=== PATIENT | female | born 1945 | race Caucasian/White ===

== ENCOUNTER 2019-12-20 12:46 | Outpatient (CLI) | payer MEDICARE, OTHER ==
[2019-12-20] MEDS ORDERED: Iopamidol-370 76% 500 ML 1 ML ONE (13:34)
--- NOTE | 2019-12-20 15:23 | CT ---
CT ABDOMEN WITH IV AND ORAL CONTRAST: 12/20/19 HISTORY: Periumbilical pain. COMPARISON: 02/02/15. FINDINGS: There are chronic changes at the lung bases. There is a 9 mm low density lesion in the left lobe of t he liver which measured about 6 mm on the previous exam. No calcified gallstones are seen. The spleen , pancreas, left adrenal gland and right kidney are normal. A tiny low dense lesion in the inferior l eft renal cortex is likely a cyst. There is a 19 mm right adrenal nodule which measured about 16 mm o n the previous study. No free air, free fluid or lymphadenopathy is seen in the abdomen. The small bowel loops are not abno rmally dilated. There are vascular calcifications without evidence of aneurysmal dilatation of the ab dominal aorta. There are degenerative changes in the spine. IMPRESSION: Minimal interval increase in size of the low density lesion in the left lobe of the liver and the rig ht adrenal nodule since 02/02/15 currently measuring 9 mm and 19 mm respectively. POS: AH
== END 2019-12-20 12:47 | disposition home or self-care (01) ==
LOC: BICCT 12:46
PROVIDERS: ATTEND Internal Medicine Gastroenterology
DX: R10.33 Periumbilical pain (principal); K76.9 Liver disease, unspecified; E27.8 Other specified disorders of adrenal gland
CPT/HCPCS: 74160; 82565; Q9967

== ENCOUNTER 2020-07-16 09:14 | Outpatient (CLI) | payer MEDICARE, OTHER ==
[~2020-07-16 09:14] MED LIST: Iopamidol-370 76% 500 ML 1 ML ONE
== END 2020-07-16 09:15 | disposition home or self-care (01) ==
LOC: BICCT 09:14
PROVIDERS: ATTEND Internal Medicine Gastroenterology
DX: E83.110 Hereditary hemochromatosis (principal); D35.01 Benign neoplasm of right adrenal gland; K76.89 Other specified diseases of liver; M48.8X4 Other specified spondylopathies, thoracic region
CPT/HCPCS: 74178; 82565; Q9967

== ENCOUNTER 2021-03-26 09:47 | Outpatient (CLI) | payer MEDICARE, OTHER | END 2021-03-26 09:48 | disposition home or self-care (01) | LOC: BICULT 09:47 | PROVIDERS: ATTEND Physician Assistant Medical | DX: E83.110 Hereditary hemochromatosis (principal) | CPT/HCPCS: 76705 ==

== ENCOUNTER 2021-04-02 13:08 | Emergency (ER) | payer MEDICARE, OTHER ==
[2021-04-02 14:00] LABS: #Basophils 0.1 thou/uL (0.0-0.2); #Eosinphils 0.1 thou/uL (0.0-0.7); #Lymphocytes 1.5 thou/uL (1.20-3.40); #Monocytes 0.6 thou/uL (0.11-0.59); #Neutrophils 4.1 thou/uL (1.40-6.50); %Basophils 1.2 % (0.0-1.0); %Eosinophils 1.2 % (0.0-10.0); %Lymphocytes 23.4 % (21.0-51.0); %Monocytes 8.9 % (0.0-10.0); %Neutrophils 65.3 % (42.0-75.0); Hemoglobin 14.2 g/dL (12.0-16.0); Mean Corpuscular HGB CONC 33.9 g/dL (32.0-36.0); Mean Corpuscular Hemoglobin 33.4 pg (27.0-31.0); Mean Corpuscular Volume 98.7 fL (78.0-98.0); Mean Platelet Volume 6.9 fL (7.4-10.4); Platelet Count 251 thou/uL (130-400); RBC Distribution Width 11.9 % (11.5-14.5); Red Blood Cell (RBC) Count 4.26 mill/uL (4.20-5.40); White Blood Cell (WBC) Count 6.2 thou/uL (4.8-10.8)
[2021-04-02 14:27] LABS: ALT (SGPT) 53 U/L (8-55); AST (SGOT) 48 U/L (5-34); Albumin 3.7 g/dL (3.4-4.8); Alkaline Phosphatase 50 U/L (40-110); Anion Gap 15 mmol/L (10-20); BUN (Urea Nitrogen) 15 mg/dL (9.8-20.1); Bilirubin, Total 0.8 mg/dL (0.2-1.2); Calc. Creatinine Clearance 0 mL/min (70-130); Calcium 8.8 mg/dL (7.8-10.44); Carbon Dioxide 22 mmol/L (23-31); Chloride 105 mmol/L (98-107); Globulin 3.2 g/dL (2.4-3.5); Glucose 134 mg/dL (83-110); Potassium 3.6 mmol/L (3.5-5.1); Protein, Total 6.9 g/dL (5.8-8.1); Sodium 138 mmol/L (136-145)
[2021-04-02 15:26] LABS: Bilirubin Negative (Negative); Blood, Urine Negative (Negative); Clarity Clear (Clear); Glucose, Urine (Dipstick) Normal (Negative); Ketone, Urine Negative (Negative); Leukocyte 25 Leu/uL (Negative); Nitrite Negative (Negative); Protein, Urine (Dipstick) Negative (Neg-Trace); RBC/HPF 0-3 HPF (0-3); Specific Gravity, Urine 1.016 (1.002-1.036); Squamous Epithelial 0-3 HPF (0-3); Urobilinogen Normal mg/dL (Less than 2); WBC/HPF 0-3 HPF (0-3)
[2021-04-02 15:27] LABS: Bacteria/HPF 1+ HPF (None Seen)
== END 2021-04-02 15:49 | disposition short-term general hospital (02) ==
LOC: ERS 13:08
DX: R55 Syncope and collapse (principal); I10 Essential (primary) hypertension; E78.5 Hyperlipidemia, unspecified
CPT/HCPCS: 36415; 51701; 71045; 80053; 81003; 81015; 84484; 85025; 93005